=== PATIENT | female | born 1955 | race Caucasian/White ===

== ENCOUNTER → 2019-04-18 | Outpatient (CLI) | payer OTHER ==
[~2019-04-18] MED LIST: ATEN25; CODBUTACEC; CYCL10; ESCI20 PO; LANS30EC; LIDO5TP TOP; PROACE100; TEMA7.5; TRAZ50 PO
== END | disposition home or self-care (01) ==
LOC: LAB SHORT 12:30 → LAB 12:30
DX: R30.0 Dysuria (principal)
CPT/HCPCS: 87077; 87086; 87186

== ENCOUNTER → 2019-11-21 | Outpatient (CLI) | payer OTHER ==
[2019-11-22 13:49] LABS: Stool Occult Bld Immuno 1 Negative (NEGATIVE)
== END | disposition home or self-care (01) ==
LOC: LAB 15:00 → LAB SHORT 15:00 → LAB FUT 07-21 11:35
PROVIDERS: Nurse Practitioner Family
DX: Z12.11 Encounter for screening for malignant neoplasm of colon (principal); Z86.73 Personal history of transient ischemic attack (TIA), and cerebral infarction without residual deficits
CPT/HCPCS: G0328

== ENCOUNTER 2019-12-16 08:34 | Observation (INO) | payer OTHER ==
[~2019-12-16] VITALS: Ht 165.1 cm; Wt 85.2 kg
[~2019-12-16 08:34] MED LIST changes: -LANS30EC; +LANS30EC PO
[2019-12-16 09:06] LABS: BASOPHILS ABSOLUTE AUTO 0.07 K/mm3 (0.00-0.23); BASOPHILS PERCENT AUTO 1 % (0-2); EOSINOPHILS PERCENT AUTO 1 % (0-6); Hematocrit 39.4 % (33.0-51.0); Hemoglobin 13.1 g/dL (11.5-16.0); IMMATURE GRAN ABSOLUTE AUTO 0.01 K/mm3 (0.00-0.10); IMMATURE GRAN PERCENT AUTO 0 % (0-1); LYMPHOCYTES ABSOLUTE AUTO 3.44 K/mm3 (0.84-5.20); LYMPHOCYTES PERCENT AUTO 34 % (21-46); MONOCYTES ABSOLUTE AUTO 0.85 K/mm3 (0.16-1.47); MONOCYTES PERCENT AUTO 8 % (4-13); Mean Corpuscular HGB 29.2 pg (26.0-34.0); Mean Corpuscular HGB Conc 33.2 g/dL (31.5-36.5); Mean Corpuscular Volume 88 fL (80-100); Mean Platelet Volume 9.9 fL (9.1-12.4); NEUTROPHILS PERCENT AUTO 56 % (41-73); Platelet Count 342 K/mm3 (150-400); RDW Coefficient Variation 12.8 % (11.7-14.2); RDW Standard Deviation 41.3 fL (35.1-46.3); Red Blood Cell Count 4.48 M/mm3 (3.80-5.20); White Blood Cell Count 10.17 K/mm3 (4.00-11.30)
[2019-12-16 09:19] LABS: Alanine Aminotransfer (ALT/SGP 21 U/L (12-78); Albumin, Blood 3.2 g/dL (3.4-5.0); Alk Phos 69 U/L (50-136); Anion Gap 6 mmol/L (6-16); Aspartate Aminotrans (AST/SGOT 19 U/L (12-37); Bilirubin, Total 0.2 mg/dL (0.1-1.0); Blood Urea Nitrogen 9 mg/dL (8-24); Bun/Creatinine Ratio 10.5 (12.0-20.0); CO2, Blood 25 mmol/L (21-32); Calcium, Blood 8.8 mg/dL (8.5-10.1); Chloride, Blood 102 mmol/L (98-108); Creatinine, Blood 0.86 mg/dL (0.40-1.00); Globulin, Blood 3.3 g/dL (2.2-4.0); Glomerular Filtration Rate >60 (60-); Glucose, Blood 139 mg/dL (70-99); Potassium, Blood 3.9 mmol/L (3.5-5.5); Sodium, Blood 133 mmol/L (136-145); Total Protein, Blood 6.5 g/dL (6.4-8.2); Troponin I <0.015 ng/mL (0.000-0.040)
--- NOTE | 2019-12-16 12:35 | NUR ---
PT ARRIVAL TO UNIT... PT ARRIVED ON UNIT APROX 1230. PT IS A&Ox4. PT WAS ADMITTED FOR SYCOPAL EPISODE WITH RESULTING FRACTURE OF RIGHT ANKEL. PT'S VS STABLE AT THIS TIME. NSR ON TELE. PT CURRENTLY DENIES ANY LIGHTHEADED/DIZZINESS, CHEST PAIN/PRESSURE N/V OR SOB. CALL LIGHT IN REACH WILL CONTINUE TO MONITOR
[2019-12-16] MEDS ORDERED: Prozac40 MG PO (12:53)
[2019-12-16] MEDS ORDERED: ZYRTEC10 M1 PO (12:58)
[2019-12-16] MEDS ORDERED: LOW DOSE ASPIRI81 M1 PO (13:00)
[2019-12-16] MEDS ORDERED: ATOR20 PO (13:01)
[2019-12-16] MEDS ORDERED: HYDCHL25 PO (13:02)
[2019-12-16] MEDS ORDERED: GABA300 PO (13:03)
[2019-12-16] MEDS ORDERED: TRAZ150T57 PO (13:04)
[2019-12-16] MEDS ORDERED: PRAM.5 PO (13:06)
[2019-12-16] MEDS ORDERED: METPHE20 PO (13:08)
--- NOTE | 2019-12-16 17:29 | NUR ---
SHIFT SUMMARY... NO ACUTE NEGATIVE CHANGES NOTED THIS SHIFT. PT'S VS STABLE, NO EPISODES OF SYNCOPE SINCE ADMIT. NO EVENTS NOTED ON TELE. PT WAS MEDICATED FOR PAIN PER EMAR WITH GOOD RESULTS. PT WAS ABLE TO STAND AND PIVOT TO THE BSC AND NOT PUT WEIGHT ON THE RIGHT FOOT/LEG. CALL LIGHT IN REACH WILL CONTINUE TO MONITOR.
--- NOTE | 2019-12-16 19:15 | NUR ---
ASSUMED CARE RECEIVED REPORT FROM ROX CASTELAN. ASSUMED CARE OF PT. IN NO ACUTE DISTRESS AT THIS TIME, RESTING COMFORTABLY. DENIES NUMBNESS OR TINGLING OF RLE, GOOD CAPILLARY REFILL, TOES WARM AND DRY. MAEGAN WRAP DRSG INTACT. PT DENIES ANY NEEDS AT THIS TIME, CALL LIGHT AND POSSESSIONS IN REACH, BED IN LOWEST POSITION. WILL CONTINUE TO MONITOR.
[2019-12-16 20:10] LABS: Source, Urine Clean Catch
[2019-12-16 20:13] LABS: Bilirubin, Urine Neg (Neg); Blood, Urine Neg (Neg); Color, Urine Yellow (P-Yellow); Glucose Qualitative, Urine Neg (Neg); Ketones, Urine Neg (Neg); Leukocyte Esterase, Urine 2+ (Neg); Nitrite, Urine Neg (Neg); Protein, Urine 1+ (Neg); Specific Gravity, Urine 1.025 (1.003-1.022); Urobilinogen, Urine NORM (Normal)
[2019-12-16 20:14] LABS: Appearance, Urine Hazy (Clear)
[2019-12-16 20:23] LABS: Bacteria Many /hpf; Mucus Light (0-Heavy); Red Blood Cells, Urine 0-2 /hpf (0-2); Squamous Epithelial Cells Mod /hpf (Few)
--- NOTE | 2019-12-16 22:45 | NUR ---
PT STATED SHE TAKES RITALIN BEFORE 1800 EVERYDAY AND LIPITOR IN THE AM. SPOKE TO MIMI HEAYL REGARDING PT'S HOME MEDICATIONS AND REGIMEN. ORDERS RECEIVED TO CHANGE TIMING OF MEDICATION ADMINISTRATION.
[2019-12-17 06:35] LABS: Anion Gap 7 mmol/L (6-16); Blood Urea Nitrogen 9 mg/dL (8-24); Bun/Creatinine Ratio 10.1 (12.0-20.0); CO2, Blood 27 mmol/L (21-32); Calcium, Blood 8.8 mg/dL (8.5-10.1); Chloride, Blood 105 mmol/L (98-108); Creatinine, Blood 0.89 mg/dL (0.40-1.00); Glomerular Filtration Rate >60 (60-); Glucose, Blood 96 mg/dL (70-99); Potassium, Blood 3.6 mmol/L (3.5-5.5); Sodium, Blood 139 mmol/L (136-145)
--- NOTE | 2019-12-17 07:48 | NUR ---
SHIFT SUMMARY: PT RESTING COMFORTABLY AT THIS TIME, NO S/S ACUTE DISTRESS NOTED. NO ACUTE CHANGES T/O SHIFT, PAIN MANAGED WITH MEDICATIONS AND REPOSITIONING, EFFECTIVE. U/A DONE, ORDERS PENDING FOR ABX. DENIES DIZZINESS, CP, PRESSURE, SOB. O2 SATS STABLE ON RA, HR STABLE. DENIES ANY NEEDS AT THIS TIME. CALL LIGHT AND POSSESSIONS IN REACH. REPORT GIVEN TO ONCOMING RN.
--- NOTE | 2019-12-17 11:48 | NUR ---
Echocardiogram completed.
--- NOTE | 2019-12-17 16:03 | NUR ---
EVENING NOTE PT AWAKE. RESTING QUIETLY. SR. NO PAUSES OR SYMPTOMATIC BRADYCARDIA NOTED. VSS. RIGHT LE ELEVATED ON PILLOW FOR COMFORT. RIGHT TOES PINK, WARM AND INTACT SENSATION. PT ABLE TO WIGGLE TOES. SOFT CAST INTACT. DR ALEXANDER HAS CLEARED PT FOR SURGERY IF NEEDED. CONTINUE POT.
--- NOTE | 2019-12-17 19:35 | NUR ---
ASSUMED CARE RECEIVED REPORT FROM ROX CAMARGO. PT RESTING COMFORTABLY AT THIS TIME, NO S/S ACUTE DISTRESS NOTED. RT TOES PINK, WARM, SENSATION INTACT. DENIES N/T. CALL LIGHT AND POSSESSIONS IN REACH, DENIES ANY NEEDS AT THIS TIME. WILL CONTINUE TO MONITOR.
--- NOTE | 2019-12-18 05:34 | NUR ---
SHIFT SUMMARY: PT SLEEPING PEACEFULLY AT THIS TIME, NO S/S ACUTE DISTRESS NOTED. NO ACUTE EVENTS T/O NIGHT, VS STABLE. WEARING 1.5-2L O2/NC WHILE SLEEPING D/T O2 SATS <92%, INCREASING TO 92-94%. GOOD PAIN MANAGEMENT, MEDICATED X1. DENIES ANY OTHER NEEDS AT THIS TIME. CALL LIGHT AND POSSESSIONS IN REACH, BED IN LOWEST POSITION WITH BED ALARM ACTIVATED. WILL CONTINUE TO MONITOR UNTIL REPORT GIVEN TO ONCOMING RN.
[2019-12-18] MEDS ORDERED: CEFP200 PO (10:04)
[2019-12-18] MEDS ORDERED: Percocet 5-3251 EACH PO (10:06)
--- NOTE | 2019-12-18 13:35 | NUR ---
DISCHARGE PT ALERT AND ORIENTED. DISCHARGE INSTRUCTIONS PROVIDED TO PT AND PT EDUCATED ON INSTRUCTIONS. PT EDUCATED ON NEW MEDICATIONS. IV REMOVED AND INTACT. ALL QUESTIONS ANSWERED. PT TAKEN OUT BY WHEELCHAIR.
== END 2019-12-18 13:58 | disposition home or self-care (01) ==
LOC: ER 08:34 → PCU 08:35 → ER 08:35 → PCU 08:35
PROVIDERS: Emergency Medicine; ADMIT Internal Medicine Endocrinology, Diabetes & Metabolism
DX: R55 Syncope and collapse (principal); S82.831A Other fracture of upper and lower end of right fibula, initial encounter for closed fracture; R00.1 Bradycardia, unspecified; G25.81 Restless legs syndrome; F41.8 Other specified anxiety disorders; F90.9 Attention-deficit hyperactivity disorder, unspecified type; I10 Essential (primary) hypertension; G47.00 Insomnia, unspecified; N39.0 Urinary tract infection, site not specified; K21.9 Gastro-esophageal reflux disease without esophagitis; Z86.73 Personal history of transient ischemic attack (TIA), and cerebral infarction without residual deficits; Z88.5 Allergy status to narcotic agent; Z79.899 Other long term (current) drug therapy; X58.XXXA Exposure to other specified factors, initial encounter
CPT/HCPCS: 29515; 36415; 71046; 73610; 80048; 80053; 81001; 82947; 83735; 84484; 85025; 87086; 93005; 93010; 93306; 96361-59; 96372; 96374-59; 97116; 97161; 99285-25; A9270-GY; G0378; J0696; J1650; J1885; J7030

== ENCOUNTER → 2020-08-13 | Outpatient (CLI) | payer OTHER ==
[~2020-08-13] MED LIST changes: +ATOR20 PO; +CEFP200 PO; +GABA300 PO; +HYDCHL25 PO; +LOW DOSE ASPIRI81 M1 PO; +METPHE20 PO; +PRAM.5 PO; +Percocet 5-3251 EACH PO; +Prozac40 MG PO; +TRAZ150T57 PO; +ZYRTEC10 M1 PO
== END | disposition home or self-care (01) ==
LOC: LAB 13:53 → LAB SHORT 13:53
DX: N39.0 Urinary tract infection, site not specified (principal)
CPT/HCPCS: 87086

== ENCOUNTER → 2022-01-02 | Outpatient (CLI) | payer MEDICARE, OTHER | END | disposition home or self-care (01) | LOC: LAB SHORT 12:00 → LAB 12:00 | PROVIDERS: Family Medicine | DX: F41.9 Anxiety disorder, unspecified (principal); M51.9 Unspecified thoracic, thoracolumbar and lumbosacral intervertebral disc disorder | CPT/HCPCS: G0480 ==

== ENCOUNTER 2023-04-27 08:38 | Day surgery (SDC) | payer OTHER ==
[2023-04-27] VITALS (21 sets, daily range): BP systolic 114–194; BP diastolic 66–107
[~2023-04-27] VITALS: Ht 167.6 cm; Wt 78.4 kg
[~2023-04-27 08:38] MED LIST changes: +Bentyl10 MG PO; +PANT40 PO
[2023-04-27] MEDS ORDERED: Percocet 10-321 EACH PO (09:26)
[2023-04-27] MEDS ORDERED: Bentyl20 MG PO (09:27)
[2023-04-27] MEDS ORDERED: DULO60 PO (09:28)
[2023-04-27] MEDS ORDERED: TRAZ150T57 PO (09:29)
[2023-04-27] MEDS ORDERED: PRAM.5 PO (09:29)
--- NOTE | 2023-04-27 09:52 | NUR ---
History, Chart, Medications and Allergies reviewed before start of procedurE. Lungs clear T/O to Auscultation. Patient States Post-Procedure ride home has been arranged.
--- NOTE | 2023-04-27 11:05 | NUR ---
04/27/23 Cordelia Ac HISTORY, CHART, MEDICATIONS AND ALLERGIES REVIEWED BEFORE START OF PROCEDURE. PATIENT CONFIRMS NPO STATUS AND AGREES WITH SCHEDULED PROCEDURE. 3-LEAD EKG REVIEWED WITH PHYSICIAN PRIOR TO START OF PROCEDURE. MONITOR INTACT WITH CONTINUOUS PULSE OXIMETRY,CAPNOGRAPHY, 3-LEAD EKG, INTERMITTENT BP. SUPPLEMENTAL O2 TO BE TITRATED THROUGHOUT PROCEDURE TO MAINTAIN O2 SATURATION ABOVE 90%. PATIENT DETERMINED TO BE ASA APPROPRIATE FOR PROPOFOL SEDATION PRIOR TO START OF PROCEDURE BY .
--- NOTE | 2023-04-27 11:06 | NUR ---
REPORT RECIEVED. PT SITTING UP IN BED TOLERING PO FLUIDS. DR GAVIN AT BEDSIDE. VSS ON ROOM AIR
--- NOTE | 2023-04-27 11:23 | NUR ---
Patient up to Ambulate independently. Gait steady. Discharge instructions reviewed with patient. Patient verbalizes understanding. Copy given to patient to take home. Discharged via wheelchair to medical transport for ride home.
== END 2023-04-27 11:35 | disposition home or self-care (01) ==
LOC: ORSCMMR 08:38 → ORD 09:30 → ORSCMMR 11:35
PROVIDERS: Internal Medicine Gastroenterology
PROC: 0DBN8ZX Excision of Sigmoid Colon, Via Natural or Artificial Opening Endoscopic, Diagnostic (ICD-10-PCS; principal; 2023-04-27 09:30)
PROC: 0DB48ZX Excision of Esophagogastric Junction, Via Natural or Artificial Opening Endoscopic, Diagnostic (ICD-10-PCS; principal; 2023-04-27 09:30)
PROC: 0DBH8ZX Excision of Cecum, Via Natural or Artificial Opening Endoscopic, Diagnostic (ICD-10-PCS; principal; 2023-04-27 09:30)
PROC: 0DB78ZX Excision of Stomach, Pylorus, Via Natural or Artificial Opening Endoscopic, Diagnostic (ICD-10-PCS; principal; 2023-04-27 09:30)
PROC: 0DB98ZX Excision of Duodenum, Via Natural or Artificial Opening Endoscopic, Diagnostic (ICD-10-PCS; principal; 2023-04-27 09:30)
DX: K21.9 Gastro-esophageal reflux disease without esophagitis (principal); K59.09 Other constipation; R10.13 Epigastric pain; D12.5 Benign neoplasm of sigmoid colon; K63.5 Polyp of colon; K44.9 Diaphragmatic hernia without obstruction or gangrene; K57.30 Diverticulosis of large intestine without perforation or abscess without bleeding; M79.7 Fibromyalgia; F90.9 Attention-deficit hyperactivity disorder, unspecified type; F32.A Depression, unspecified; Z86.73 Personal history of transient ischemic attack (TIA), and cerebral infarction without residual deficits; Z79.899 Other long term (current) drug therapy
CPT/HCPCS: 88305; 88312; 88342; A9270; J2704; J7120

== ENCOUNTER → 2023-11-18 | Outpatient (CLI) | payer OTHER ==
[~2023-11-18] MED LIST changes: +Bentyl20 MG PO; +DULO60 PO; +Percocet 10-321 EACH PO
== END | disposition home or self-care (01) ==
LOC: LAB 17:55 → LAB SHORT 17:55
DX: N39.0 Urinary tract infection, site not specified (principal)
CPT/HCPCS: 87077; 87086; 87186

== ENCOUNTER → 2024-03-30 | Outpatient (CLI) | payer OTHER ==
[2024-04-04 14:37] LABS: AMPHETAMINE,URN,QUANT <50 ng/mL; MDA,URN,QUANT <200 ng/mL; MDEA,URN,QUANT <200 ng/mL; MDMA,URN,QUANT <200 ng/mL; METHAMPHETAMINE,URN,QUANT <200 ng/mL; PHENTERMINE,URN,QUANT <200 ng/mL
== END | disposition home or self-care (01) ==
LOC: LAB SHORT 18:00 → LAB 18:00
PROVIDERS: Family Medicine
DX: M54.50 Low back pain, unspecified (principal); G89.29 Other chronic pain; Z79.899 Other long term (current) drug therapy
CPT/HCPCS: 87077; 87086; 87186; G0480

== ENCOUNTER → 2025-05-02 | Outpatient (CLI) | payer OTHER | LOC: LAB 18:15 → LAB SHORT 18:15 | DX: N39.0 Urinary tract infection, site not specified (principal) | CPT/HCPCS: 87077; 87086; 87186 ==